=== PATIENT | male | born 1950 | race Caucasian/White ===

== ENCOUNTER → 2023-12-25 13:10 | Outpatient (REF) | payer MEDICARE, OTHER, SELFPAY | LOC: HWRAD 13:10 | PROVIDERS: ATTENDING PHYSICIAN Internal Medicine Rheumatology; FAMILY PHYSICIAN Family Medicine | DX: M81.0 Age-related osteoporosis without current pathological fracture (principal) | CPT/HCPCS: 77080 ==

== ENCOUNTER 2024-03-08 13:32 | Inpatient (IN) | payer MEDICARE, OTHER, SELFPAY ==
[2024-03-07 11:42] VITALS: BP 179/107
[2024-03-07 12:17] LABS: % Basophils 0.4 % (0-2); % Eosinophils 0.4 % (0-6); % Immature Granulocytes 0.4 % (0-0.5); % Lymphocytes 10.4 % (20.5-51.1); % Monocytes 6.8 % (1.7-9.3); % Neutrophils 81.6 % (42.2-75.2); Absolute Lymphocytes 0.8 10^3/uL (1.2-3.4); Absolute Monocytes 0.5 10^3/uL (0.1-0.6); Absolute Neutrophils 6.4 10^3/uL (1.4-6.5); Hematocrit 40.9 % (39.0-52.0); Hemoglobin 14.1 g/dL (13.0-18.0); Mean Corp Hgb Conc. 34.5 g/dL (33.0-37.0); Mean Corpuscular Hgb 30.8 pg (27.0-31.0); Mean Corpuscular Volume 89.3 fL (80.0-94.0); Mean Platelet Volume 9.6 fL (7.4-10.4); Nucleated Red Blood Cells % 0 % (-); Platelet Count 142 10^3/uL (130-400); Red Blood Cell Count 4.58 10^6/uL (4.70-6.10); Red Cell Dist. Width 14.6 % (11.5-14.5); White Blood Cell Count 7.8 10^3/uL (4.8-10.8)
[2024-03-07 12:44] LABS: ALT (SGPT) 16 U/L (0-50); AST (SGOT) 21 U/L (17-59); Alkaline Phosphatase 72 U/L (38-126); Blood Urea Nitrogen 14 mg/dl (9-20); Calcium 9.5 mg/dl (8.4-10.2); Carbon Dioxide 27 mmol/L (22-30); Chloride 106 mmol/L (98-107); Glucose 111 mg/dl (70-99); Potassium 3.8 mmol/L (3.5-5.1); Sodium 137 mmol/L (135-145); Total Bilirubin 1.1 mg/dl (0.2-1.3); Total Protein 6.4 g/dl (6.3-8.2); eGFR > 60.00
[2024-03-07 12:54] LABS: NT-proBNP 384 pg/ml
[2024-03-07 15:31] VITALS: BMI 36.8
[2024-03-07 15:37] VITALS: BP 158/98
[2024-03-07 16:07] LABS: Troponin I 0.012 ng/ml
--- NOTE | 2024-03-07 16:23 | ED.GENMED ---
History of Present Illness
General
Chief Complaint: Breathing Problem
Source: patient
Exam Limitations: none
Time Seen by Provider: 03/07/24 15:07
Nursing documentation reviewed up to this point in time: agreed with
Travel History
Have you had any contact with someone who has COVID-19?: No
Do you have any symptoms of coronavirus? Fever > 100 degrees, chills, cough, shortness of breath, sore throat, loss of taste or smell, muscle aches, or headache?: No
History of Present Illness
History of Present Illness:
Patient to ED with complaint of sudden onset severe SOB. States he lifted a case of water and becme SOB while carrying a short distance. He rested and symptoms resolved. Tried to carry water again and symptoms returned. Took approx 1 hour for
his SOB to resolve. [place] air hungry, unable to 'get air to lungs'. He has a prior history of PE approx 1o years ago after surgery. He was initally on coumadin and then switched to xarelto. Xarelto was disocontinued 1 year ago. He had carpal
tunnel surgery February 03 and was feeling well until today. Brought to ED by for eval. Pulse ox 95% RA resting. No pain or swelling in legs. Denies any CP/pressure
Past History
Past History
ED Past Medical History: GERD, Hypercholesterolemia, Hypothyroidism and Other (polymyalgia rheumatica)
Review of Systems
Review of Systems
Allergies reviewed?: Yes
All Other Systems: ROS reviewed and negative except as documented in HPI and ROS
Constitutional: Reports no symptoms
EENT: Reports no symptoms
Respiratory: Reports trouble breathing
Cardiac: Reports no symptoms
ABD/GI: Reports no symptoms
: Reports no symptoms
Musculoskeletal: Reports no symptoms
Skin: Reports no symptoms
Neurological: Reports no symptoms
Psychiatric: Reports no symptoms
Phy Exam
General Physical Exam
General Presentation: well appearing
General age: appears stated age
General Skin: warm and dry
General Habitus: normal
General Mental: alert
General Hydration: appears well hydrated
Cardiovascular Exam
Cardiovascular Exam: regular rate/rhythm and no edema
Pulmonary Exam
Pulmonary Exam: lungs clear, no respiratory distress and chest non tender
Musculoskeletal Exam
Musculoskeletal Exam: full ROM, no edema and neuro vasc intact
Skin Exam
Skin Exam: normal color, warm/dry and no rash
Psychiatric Exam
Psychiatric Exam: normal mood/affect
Scores
Heart Failure Risk
Heart Failure Risk Score: Not Applicable
Course
Orders/Labs/Results
Orders:
Orders
03/07/24 11:45
Electrocardiogram (*1) Urgent
Reason for Study: Shortness of Breath
EKG- Treatment ONCE
03/07/24 12:03
BNP [NT-proBNP] Urgent
Complete Blood Count/With Diff Urgent
Comprehensive Metabolic Panel Urgent
03/07/24 14:38
Chest [CR Chest - 2 Views ] Urgent
Comment:
Reason For Exam: SOB
03/07/24 15:27
CT Chest Pe Study Urgent
Comment:
Reason For Exam: SOB, hx PE
03/07/24 15:33
Troponin I Urgent
03/07/24 16:21
US Periph Venous LOWER Ext Prince Urgent
Comment:
Reason For Exam: Bilat PE
03/07/24 16:22
PTT Urgent
Heparin 9,800 units IV NOW STA
Nursing to Place Non Medication Order As Directed
Physician Order: PTT 6 hours after initial start of Heparin infusion
Above order entered?: Yes
03/07/24 16:30
Heparin 68320 Units/250 ml 25,000 units in 250 ml IV PER PROTOCOL
Weight to be used for heparin protocol in kilograms (kg):: 123.1
Protocol:: DVT/PE
PTT Goal Range to be used:: PTT 73 to 111 seconds
Order type:: Initial
INITIAL Infusion Dose (UNITS/KG/hr) & then follow protocol:: 18 units/kg/hr
Infusion Dose in UNITS/hr & then follow protocol (UNITS/hr):: 2,000
INFUSION RATE in mL/hr & then follow protocol (mL/hr):: 20
For DVT/PE algorithm, re-bolus for low PTT?: Yes
PTT less than or equal to 64 seconds:: Re-bolus 80 units/kg (max 10,000units). Increase by 500 units/hr
(+ 5mL/hr)
PTT 64.1 to 72.9 seconds:: Re-bolus 40 units/kg (max 5,000 units). Increase by 200 units/hr
(+ 2mL/hr)
PTT 73 to 111 seconds:: Target Range. No change in rate.
PTT 111.1 to 130.9 seconds:: Decrease rate by 200 units/hr (- 2 mL/hr)
PTT 131 to 199.9 seconds:: HOLD for 1 hr. Then decrease by 400 units/hr (- 4mL/hr)
PTT greater than or equal to 200 seconds:: HOLD for 2 hrs & Notify Provider. Then decrease by 500 units/hr
(- 5mL/hr)
Lab follow-up:: Each change, PTT q6h until 2 consecutive are therapeutic. Then
PTT daily.
03/07/24 16:58
Heparin 4,900 units IV PRN PRN
Heparin 9,800 units IV PRN PRN
03/07/24 17:10
Admit/Transfer Patient As Directed
Co-Sign Provider:
Level of Care: Observation services
Assign to:: Telemetry
Physician / Group: [email or web address]
Diagnosis: pulmonary embolism
Reason for Telemetry: Arrhythmia
Date to Stop Telemetry: 03/10/24
Time to Stop Telemetry: 11:00
Code Status As Directed
Resuscitation Status: Full Code
03/10/24 11:00
DC Protocol for Telemetry ONCE
Abnormal Lab Results
03/07/24
12:03
RBC 4.58 L 10^6/uL
(4.70-6.10)
RDW 14.6 H %
(11.5-14.5)
Absolute Lymphs (auto) 0.8 L 10^3/uL
(1.2-3.4)
Neutrophils % 81.6 H %
(42.2-75.2)
Lymphocytes % 10.4 L %
(20.5-51.1)
Glucose 111 H mg/dl
(70-99)
03/07/24 12:03
03/07/24 12:03
Vital Signs
Initial and Last Documented VS:
Initial Vital Signs
Temp Pulse Resp BP Pulse Ox
98.1 F 72 18 179/107 94
03/07/24 11:42 03/07/24 11:42 03/07/24 11:42 03/07/24 11:42 03/07/24 11:42
Last Documented Vital Signs
Temp Pulse Resp BP Pulse Ox
98.1 F 65 17 158/98 95
03/07/24 11:42 03/07/24 15:37 03/07/24 15:37 03/07/24 15:37 03/07/24 15:37
*Radiology
Radiology exam reviewed: radiology read reviewed (Sever acute Pulmonary embolic disease in lower lobes of both lungs. Mild right heart strain.)
*Critical Care Note
Total Time (30-74mins, 75-104mins- exclusive of procedures): Not Applicable
ED Attending Note
-
Portions of this chart may have been created with voice recognition software.� Occasional wrong word or��sound alike� substitutions may have occurred due to the inherent limitations of voice recognition software.
Discharge Plan
Departure
Patient Disposition: Admit
Date of Disposition: 03/07/24
Time of Disposition: 16:34
Presentation/result/management discussed w/ accepting MD/DO: Hospitalist
Patient with high blood pressure during this ER visit?: No
Condition: Fair
Covid-19: Not Applicable
Discharge Problem:
Pulmonary embolism, bilateral
Prescriptions:
No Action
prednisone 5 mg Tablet
5 mg PO DAILY
Patient Comments:
03/07/2024: taken w/ 3mg = 8mg
omeprazole [Prilosec] 40 mg Capsule,Delayed Release(Dr/Ec)
40 mg PO DAILY
prednisone 1 mg Tablet
3 mg PO DAILY
Patient Comments:
03/07/2024: taken w/ 5mg = 8mg
levothyroxine [Synthroid] 125 mcg Tablet
125 mcg PO DAILY
calcium citrate [Citracal] 200 mg (950 mg) Tablet
400 mg PO DAILY
rosuvastatin 40 mg Tablet
40 mg PO DAILY
cholecalciferol (vitamin D3) [Vitamin D3] 50 mcg (2,000 unit) Tablet
50 mcg PO DAILY
[facility] 750 mg-100 mg- 1.65 mg-108 mg Tablet
2 tab PO DAILY
Interventions
Interventions:
*Risk Screen - Suicide Last Done: 03/07/24 11:42
*General Assessment Last Done: 03/07/24 11:42
*Neglect/Abuse Screening Last Done: 03/07/24 11:42
*ED COVID-19 Vaccine History Last Done: 03/07/24 11:42
ED- Cardiac Assessment Last Done: 03/07/24 15:36
ED- Pulmonary Assessment Last Done: 03/07/24 15:36
Discharge Date and Time
Print Language: MACEDONIAN
[2024-03-07 16:49] LABS: APTT 26.6 Sec (23.4-35.0)
[2024-03-07] MEDS: HEPARIN 25000 UNITS/250 ML IV (17:09)
[2024-03-07] MEDS: HEPARIN 9800 UNITS IV (17:10)
--- NOTE | 2024-03-07 17:12 | HPS.HSE ---
Family Physician
-
Family Physician: Butch Urena
Chief Complaint
-
shortness of breath
History of Present Illness
73-year-old male past medical history of prior pulmonary embolism/DVT 10 years ago, hypothyroidism, GERD, hypercholesterolemia, polymyalgia rheumatica, presenting with sudden onset of severe shortness of breath today. He was lifting a case of water
and became short of breath while carrying it a short distance. He rested and symptoms almost completely resolved. He tried to carry water again his symptoms returned. He denies any chest pain, swelling in his legs. He did have some dizziness but
denies passing out. He had carpal tunnel surgery on his left upper extremity on February 03. He denies any recent prolonged travel. He denies any recent COVID infection.
He previously had pulmonary embolism 10 years ago after surgery and was initially on Coumadin and then switched to Xarelto. Xarelto was discontinued 1 year ago. He had genetic testing for hypercoagulability which was unremarkable. No family
history of blood clots.
He had carpal tunnel surgery on February 03 and was feeling well until today.
Medical History
Past Medical History
Past Medical History: Reports Other (prior pulmonary embolism/DVT 10 years ago, hypothyroidism, GERD, hypercholesterolemia, polymyalgia rheumatica,)
Past Surgical History: Reports Orthopedic
Social History
Tobacco: Former Smoker
Alcohol: None
Drug: None
Family History
Family History: Not pertinent
Allergies / Home Medications
Allergies reflects when Allergies were last updated in [facility].
Home Medications with original date entered in [facility]
Allergy/Medication List:
Allergies
Allergy/AdvReac Type Severity Reaction Status Date / Time
No Known Allergies Allergy Unverified 03/07/24 11:44
Home Medications
calcium citrate 200 mg (950 mg) tablet 400 mg PO DAILY 03/07/24
cholecalciferol (vitamin D3) 50 mcg (2,000 unit) tablet (Vitamin D3) 50 mcg PO DAILY 03/07/24
glucosam 750 mg-chondroi 100 mg-hyalur 1.65 mg-CF borate 108 mg tablet (Healionics) 2 tab PO DAILY 03/07/24
levothyroxine 125 mcg tablet (Synthroid) 125 mcg PO DAILY 03/07/24
omeprazole 40 mg capsule,delayed release 40 mg PO DAILY 03/07/24
prednisone 1 mg tablet 3 mg PO DAILY 03/07/24
prednisone 5 mg tablet 5 mg PO DAILY 03/07/24
rosuvastatin 40 mg tablet 40 mg PO DAILY 03/07/24
Review of Systems
-
History Source: Patient
A 12 point ROS was completed and negative except as noted: Yes
Constitutional: Reports No Symptoms
EENT: Reports No Symptoms
Respiratory: Reports See HPI
Cardiac: Reports No Symptoms
Abdomen/GI: Reports No Symptoms
: Reports No Symptoms
Musculoskeletal: Reports No Symptoms
Skin: Reports No Symptoms
Neurological: Reports No Symptoms
Endocrine: Reports No Symptoms
Hematologic/Lymphatic: Reports No Symptoms
Psych: Reports No Symptoms
Physical Exam
Vital Signs
Vital Signs
Temp Pulse Resp BP Pulse Ox
98.1 F 65 17 158/98 95
03/07/24 11:42 03/07/24 15:37 03/07/24 15:37 03/07/24 15:37 03/07/24 15:37
Physical Exam
General: Well Developed, Well Nourished and No Apparent Distress
HEENT: NormoCephalic, Moist mucous membranes and Atraumatic
Respiratory: Clear
Cardiac: S1/S2 and Regular Rhythm; No Murmur or Rub
GI: Soft, Non Tender, Non Distended and Normal Bowel Sounds; No Organomegaly
Rectal: Deferred by Provider
Musculoskeletal: No Clubbing, No Cyanosis and No Edema
Skin: No Rash
Neuro: Nonfocal/grossly intact
Laboratory Results
-
03/07/24 12:03
03/07/24 12:03
Laboratory Results
APTT 26.6 Sec (23.4-35.0) 03/07/24 16:22
Total Bilirubin 1.1 mg/dl (0.2-1.3) 03/07/24 12:03
AST 21 U/L (17-59) 03/07/24 12:03
ALT 16 U/L (0-50) 03/07/24 12:03
Alkaline Phosphatase 72 U/L (38-126) 03/07/24 12:03
Troponin I 0.012 ng/ml 03/07/24 15:33
Data Reviewed
-
Lab Data: Labs Reviewed by me
Old Records: Reviewed
Impression/Plan
-
IMPRESSION:
PLAN:
# Provoked pulmonary embolism from carpal tunnel surgery
# History of possibly unprovoked pulmonary embolism 10 years ago
-CT chest shows severe acute pulmonary embolism in lower lobes of both lungs, moderate pulmonary embolic disease in the right upper and middle lobes with right heart strain
-Heparin drip
-Likely needs Xarelto lifelong
-Check venous ultrasound
-Check echo
-Pulmonary consulted
Hypothyroidism
-Continue levothyroxine
GERD
-Continue omeprazole
Polymyalgia rheumatica
-Continue prednisone
Hypercholesteremia
-Continue statin
Full code
DVT prophylaxis�heparin drip
Regular diet
[2024-03-07 18:29] VITALS: BP 179/108; BMI 35.8
[2024-03-07 19:31] VITALS: BP 165/96
[2024-03-07 23:55] VITALS: BP 154/94
[2024-03-07 23:58] LABS: APTT > 200 Sec (23.4-35.0)
[2024-03-08 03:47] VITALS: BP 147/90
[2024-03-08] MEDS: SYNTHROID 125 MCG PO (05:42)
[2024-03-08 07:55] VITALS: BP 142/92
[2024-03-08 08:09] LABS: % Basophils 0.8 % (0-2); % Eosinophils 3.2 % (0-6); % Immature Granulocytes 0.3 % (0-0.5); % Lymphocytes 31.3 % (20.5-51.1); % Monocytes 10.1 % (1.7-9.3); % Neutrophils 54.3 % (42.2-75.2); Absolute Basophils 0.1 10^3/uL (0-0.2); Absolute Eosinophils 0.2 10^3/uL (0-0.7); Absolute Lymphocytes 2.1 10^3/uL (1.2-3.4); Absolute Monocytes 0.7 10^3/uL (0.1-0.6); Absolute Neutrophils 3.6 10^3/uL (1.4-6.5); Hematocrit 41.3 % (39.0-52.0); Hemoglobin 13.8 g/dL (13.0-18.0); Mean Corp Hgb Conc. 33.4 g/dL (33.0-37.0); Mean Corpuscular Hgb 30.3 pg (27.0-31.0); Mean Corpuscular Volume 90.8 fL (80.0-94.0); Mean Platelet Volume 10.1 fL (7.4-10.4); Nucleated Red Blood Cells % 0 % (-); Platelet Count 130 10^3/uL (130-400); Red Blood Cell Count 4.55 10^6/uL (4.70-6.10); Red Cell Dist. Width 14.6 % (11.5-14.5); White Blood Cell Count 6.6 10^3/uL (4.8-10.8)
[2024-03-08 08:18] LABS: APTT 78.2 Sec (23.4-35.0)
[2024-03-08 08:50] LABS: ALT (SGPT) 17 U/L (0-50); AST (SGOT) 24 U/L (17-59); Albumin 3.7 g/dl (3.5-5.0); Alkaline Phosphatase 68 U/L (38-126); Blood Urea Nitrogen 14 mg/dl (9-20); Carbon Dioxide 28 mmol/L (22-30); Chloride 105 mmol/L (98-107); Estimated Creatinine Clearance 107 ml/min; Glucose 86 mg/dl (70-99); Potassium 3.7 mmol/L (3.5-5.1); Sodium 136 mmol/L (135-145); Total Bilirubin 1.1 mg/dl (0.2-1.3); Total Protein 6.1 g/dl (6.3-8.2); eGFR > 60.00
[2024-03-08] MEDS: OSCAL CAL 500 500 MG PO (09:37)
[2024-03-08] MEDS: DELTASONE 3 MG PO (09:37)
[2024-03-08] MEDS: PROTONIX 40 MG PO (09:37)
[2024-03-08] MEDS: VITAMIN D3 (cholecalciferol) 50 MCG PO (09:37)
[2024-03-08] MEDS: CRESTOR 40 MG PO (09:37)
[2024-03-08] MEDS: DELTASONE 5 MG PO (09:37)
[2024-03-08] MEDS: HEPARIN 25000 UNITS/250 ML IV (09:38)
[2024-03-08 10:35] LABS: Hepatitis C Antibody Negative (Negative)
[2024-03-08 11:55] VITALS: BP 119/77
--- NOTE | 2024-03-08 12:22 | CON.PUL ---
Consultation
Consultation Request
Date/Time Consultation Requested: 03/08/2024
Date/Time Consultation Performed: 03/08/2024
Requesting Provider: Dr. Dao
Performing Provider: Dr. Steven Godinez
Reason for Consultation: Acute pulmonary embolism/DVT
Medical History
-
History of Present Illness:
73-year-old man with past medical history noted, complaint of sudden onset severe SOB. States he lifted a case of water and becme SOB while carrying a short distance. He rested and symptoms resolved. Tried to carry water again and symptoms
returned. Took approx 1 hour for his SOB to resolve. [place] air hungry, unable to 'get air to lungs'.
He has a prior history of PE approx 1o years ago after surgery.
He was initally on coumadin and then switched to xarelto. Xarelto was disocontinued 1 year ago. He had carpal tunnel surgery February 03 and was feeling well until today.
CT of the chest demonstrated bilateral pulmonary embolism. Patient remained hemodynamically stable.
No require significant amount of oxygen. Started on anticoagulation.
Past Medical History
Past Medical History: Other (See assessment and plan section)
Social History
Tobacco: Former Smoker
Alcohol: None
Drug: None
Employment: Retired
Family History
Family History: Reviewed & Not Pertinent
Allergies / Home Medications
Allergies
Allergy/AdvReac Type Severity Reaction Status Date / Time
No Known Allergies Allergy Unverified 03/07/24 11:44
Home Medications
�Medication �Instructions �Recorded �Confirmed �Last Taken �Type
calcium citrate 200 mg (950 mg) 400 mg PO DAILY 03/07/24 03/07/24 03/06/24 History
tablet
cholecalciferol (vitamin D3) 50 50 mcg PO DAILY 03/07/24 03/07/24 03/06/24 History
mcg (2,000 unit) tablet (Vitamin
D3)
glucosam 750 mg-chondroi 100 2 tab PO DAILY 03/07/24 03/07/24 03/06/24 History
mg-hyalur 1.65 mg-CF borate 108 mg
tablet ([facility] Free [employer])
levothyroxine 125 mcg tablet 125 mcg PO DAILY 03/07/24 03/07/24 03/06/24 History
(Synthroid)
omeprazole 40 mg capsule,delayed 40 mg PO DAILY 03/07/24 03/07/24 03/06/24 History
release
prednisone 1 mg tablet 3 mg PO DAILY 03/07/24 03/07/24 03/07/24 History
prednisone 5 mg tablet 5 mg PO DAILY 03/07/24 03/07/24 03/07/24 History
rosuvastatin 40 mg tablet 40 mg PO DAILY 03/07/24 03/07/24 03/06/24 History
Review of Systems
-
History Source: Patient
All other systems: Negative unless noted
Vitals / Labs / Diagnostic Testing
Vital Signs
Temp Pulse Resp BP Pulse Ox
97.9 F 64 18 142/92 95
03/08/24 07:55 03/08/24 07:55 03/08/24 07:55 03/08/24 07:55 03/08/24 10:53
Lab Data
03/08/24 07:49
03/08/24 07:49
Laboratory Results
03/07/24 03/07/24 03/08/24
16:22 23:17 01:00
APTT 26.6 > 200 H* Cancelled
03/08/24
07:49
APTT 78.2 H
Diagnostic Testing:
Physical Exam
-
HEENT: Normocephalic
Cardiovascular: S1/S2
Respiratory: Clear and Non-Labored Respirations
GI: Soft and Non Distended
Neurology: Awake and Alert
General: Respiratory Distress (n)
Assessment
-
Acute bilateral pulmonary embolism unprovoked
Normal proBNP and troponin
CT chest reviewed 03/07/2024:
1. SEVERE ACUTE PULMONARY ARTERIAL EMBOLIC DISEASE in in the lower lobes of both lungs. Moderate pulmonary arterial embolic disease in the right upper and middle lobes.
2. Suggestion of MILD RIGHT HEART STRAIN.
3. Mildly decreased lung volumes with a mild amount of subsegmental atelectasis in the dependent portions of the lower lobes.
4. 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
Acute Left lower extremity DVT
Lower extremity Dopplers: Positive for thromboembolus in the left femoral, popliteal, peroneal, and gastrocnemius veins.
Conditions present prior admission:
Severe obstructive sleep apnea based on home sleep study-currently not on CPAP.
Recent carpal tunnel surgery 01/2024
Hypothyroidism
GERD
prior pulmonary embolism/DVT 10 years ago
hypothyroidism
hypercholesterolemia
polymyalgia rheumatica on low dose steroids.
Assessment and plan:
Unprovoked pulmonary embolism with significant DVT as well. Doubt carpal tunnel surgery was a provoking event.
It appears that event 10 years ago was unprovoked.
Hemodynamically stable, not significantly tachycardic.
Negative proBNP and troponin.
Hemodynamically stable.
Echocardiogram has been ordered. Will follow.
-
Continue heparin or Lovenox for the next 24 hours and then transition to oral anticoagulants.
Patient will need outpatient pulmonary follow-up.
Likely given second unprovoked event, will need lifelong anticoagulation. Will be ongoing discussion in the outpatient setting.
-
Discussed with patient obstructive sleep apnea. Recommend outpatient follow-up to set up CPAP. Patient states that he does not want to try CPAP.
Will be ongoing discussion in the outpatient setting.
-
Will follow
Hopefully can discharge tomorrow.
Discussed with primary team
--- NOTE | 2024-03-08 13:29 | W.PN.HOSP.TC ---
Today's Communication/Plan
-
see outlined plan
Assessment / Plan
Assessment / Plan
Assessment:
Unproved VTE
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
- CT: SEVERE ACUTE PULMONARY ARTERIAL EMBOLIC DISEASE in in the lower lobes of both lungs. Moderate pulmonary arterial embolic disease in the right upper and middle lobes. Suggestion of MILD RIGHT HEART STRAIN.
- Dopplers: thromboembolus in the left femoral, popliteal, peroneal, and gastrocnemius veins
- continue IV Heparin x 24 hours further - requires intensive monitoring
- at discharge, transition back to Xarelto (planned for lifelong treatment)
- check Echo
Hypothyroidism
- continue levothyroxine
GERD
- continue omeprazole
Polymyalgia rheumatica
- continue prednisone
Hypercholesteremia
- continue statin
Severe obstructive sleep apnea based on home sleep study-currently not on CPAP.
- outpatient follow up
Recent carpal tunnel surgery 01/2024
Code: Full
Anticipated Discharge: Within 24 hours
Subjective/Interval History
-
Date of Service: March 08, 2024
mildly SOB
on RA
Objective Data
-
Labs:
Laboratory Results
03/08/24 03/08/24
07:49 15:00
WBC 6.6
Hgb 13.8
Hct 41.3
Plt Count 130
APTT 78.2 H Pending
Sodium 136
Potassium 3.7
Chloride 105
Carbon Dioxide 28
BUN 14
Creatinine 0.8
Glucose 86
Calcium 9.0
Total Bilirubin 1.1
AST 24
ALT 17
Alkaline Phosphatase 68
Vital Signs:
Vital Signs
Temp Pulse Resp BP Pulse Ox
97.7 F 73 18 119/77 97
03/08/24 11:55 03/08/24 11:55 03/08/24 11:55 03/08/24 11:55 03/08/24 11:55
I&O
03/07/24 03/08/24 03/09/24
06:59 06:59 06:59
Intake Total 240 / 240
Balance 240 / 240
Physical Exam
-
General: No Apparent Distress
HEENT: Normocephalic and Atraumatic
Respiratory: Clear to Auscultation; Negative Wheezes or Rales
Cardiac: Regular Rhythm and S1/S2
GI: Soft and Nontender
Neuro: AO x 3
Hematologic / Lymphatic: No Lymphadenopathy
Psych: Calm
Data Reviewed
-
Total Time Spent with Patient (in minutes): 52
Labs: Labs Reviewed by me
[2024-03-08 15:32] LABS: APTT 72.2 Sec (23.4-35.0)
[2024-03-08] MEDS: HEPARIN 4900 UNITS IV (15:50)
[2024-03-08 15:55] VITALS: BP 142/81
--- NOTE | 2024-03-08 16:14 | CM ---
Alert awake oriented patient who lives with his Hoa who lives in a 2 story home with 3 step to enter and bed and bathroom on first floor. He is independent in driving and in all activities of daily living.He was offered Vn he declined need.
IV infusion VN hx / No SNF history
Pharmacy [facility]
PCP DR Butch Urena
PLAN Home Declined VN
[2024-03-08 19:55] VITALS: BP 131/95
[2024-03-08 22:25] LABS: APTT 151.1 Sec (23.4-35.0)
[2024-03-08 23:58] VITALS: BP 141/88
[2024-03-09 03:45] VITALS: BP 151/98
[2024-03-09] MEDS: HEPARIN 25000 UNITS/250 ML IV ×2 (03:49→18:28)
[2024-03-09 05:41] LABS: Hematocrit 39.8 % (39.0-52.0); Hemoglobin 13.5 g/dL (13.0-18.0); Mean Corp Hgb Conc. 33.9 g/dL (33.0-37.0); Mean Corpuscular Hgb 30.8 pg (27.0-31.0); Mean Corpuscular Volume 90.7 fL (80.0-94.0); Mean Platelet Volume 9.7 fL (7.4-10.4); Platelet Count 145 10^3/uL (130-400); Red Blood Cell Count 4.39 10^6/uL (4.70-6.10); Red Cell Dist. Width 14.6 % (11.5-14.5); White Blood Cell Count 8.6 10^3/uL (4.8-10.8)
[2024-03-09 05:49] LABS: APTT 74.2 Sec (23.4-35.0)
[2024-03-09] MEDS: SYNTHROID 125 MCG PO (06:11)
[2024-03-09 06:25] LABS: Blood Urea Nitrogen 19 mg/dl (9-20); Calcium 9.1 mg/dl (8.4-10.2); Carbon Dioxide 30 mmol/L (22-30); Chloride 104 mmol/L (98-107); Estimated Creatinine Clearance 85 ml/min; Glucose 88 mg/dl (70-99); Potassium 3.7 mmol/L (3.5-5.1); Sodium 137 mmol/L (135-145); eGFR > 60.00
[2024-03-09] MEDS: DELTASONE 3 MG PO (07:52)
[2024-03-09] MEDS: PROTONIX 40 MG PO (07:53)
[2024-03-09] MEDS: VITAMIN D3 (cholecalciferol) 50 MCG PO (07:53)
[2024-03-09] MEDS: OSCAL CAL 500 500 MG PO (07:53)
[2024-03-09] MEDS: CRESTOR 40 MG PO (07:53)
[2024-03-09] MEDS: DELTASONE 5 MG PO (07:53)
[2024-03-09 07:55] VITALS: BP 137/74
--- NOTE | 2024-03-09 10:57 | W.PN.PUL3 ---
Today's Communication / Plan
-
Keep 1 more day of systemic anticoagulation given RV dysfunction
Transition to oral anticoagulants tomorrow
Increase activity as tolerated
Hypoxia assessment in the morning
Hopefully can discharge tomorrow if patient stable.
Will need pulmonary follow-up
updated over the phone by me.
Assessment
-
Acute bilateral pulmonary embolism unprovoked
Normal proBNP and troponin
CT chest reviewed 03/07/2024:
1. SEVERE ACUTE PULMONARY ARTERIAL EMBOLIC DISEASE in in the lower lobes of both lungs. Moderate pulmonary arterial embolic disease in the right upper and middle lobes.
2. Suggestion of MILD RIGHT HEART STRAIN.
3. Mildly decreased lung volumes with a mild amount of subsegmental atelectasis in the dependent portions of the lower lobes.
4. 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
Acute Left lower extremity DVT
Lower extremity Dopplers: Positive for thromboembolus in the left femoral, popliteal, peroneal, and gastrocnemius veins.
Conditions present prior admission:
Severe obstructive sleep apnea based on home sleep study-currently not on CPAP.
Recent carpal tunnel surgery 01/2024
Hypothyroidism
GERD
prior pulmonary embolism/DVT 10 years ago
hypothyroidism
hypercholesterolemia
polymyalgia rheumatica on low dose steroids.
Assessment and plan:
Unprovoked pulmonary embolism with significant DVT as well. Doubt carpal tunnel surgery was a provoking event.
It appears that event 10 years ago was unprovoked.
Hemodynamically stable, not significantly tachycardic.
Normal proBNP and troponin.
Hemodynamically stable.
Echocardiogram:: Reviewed, showed normal LVEF. Dilated RV. Pulmonary hypertension.
-
Has remained on therapeutic heparin drip.
Transition to oral anticoagulation
Would monitor ordered for additional 24 hours given findings on echocardiogram. High risk for complications.
Hopefully discharge on 03/10/2024 if remains stable.
Patient will need outpatient pulmonary follow-up.
Likely given second unprovoked event, will need lifelong anticoagulation. Will be ongoing discussion in the outpatient setting.
-
Discussed with patient obstructive sleep apnea. Recommend outpatient follow-up to set up CPAP. Patient states that he does not want to try CPAP.
Untreated obstructive sleep apnea may be also contributing to RV dysfunction and pulmonary hypertension.
Will be ongoing discussion in the outpatient setting.
-
Patient would like to go to [place] on Thursday driving. Not an absolute contraindication but he was told that there is risk of additional clot dislodgment with subsequent acute event. He will discuss with whether to delay the trip for a
few more days.
-
Will follow
Hopefully can discharge tomorrow.
Discussed with primary team
Subjective Data
-
Date of Service:
Date of Service: March 09, 2024
Chief Complaint: Pulmonary Follow Up (Acute pulmonary embolism)
Subjective:
No new complaints, denies lightheadedness or chest pain.
Denies nausea or vomiting
Review of Systems
General: Fever (n)
Cardiopulmonary: Dyspnea (improved) and Sputum Production (n)
GI: Abdominal Pain (n), Nausea (n) and Vomiting (n)
Neuro: Headache (n)
Objective Data
Data Reviewed
Vital Signs / I&O / Oxygen:
Vital Signs
Temp Pulse Resp BP Pulse Ox
97.5 F 63 18 137/74 94
03/09/24 07:55 03/09/24 07:55 03/09/24 07:55 03/09/24 07:55 03/09/24 07:55
Intake and Output
03/08/24 03/09/24 03/10/24
06:59 06:59 06:59
Intake Total 240 / 240 1140 / 1140
Balance 240 / 240 1140 / 1140
SaO2 94
Physical Exam
General: Respiratory Distress (n) and Comfortable
HEENT: Normocephalic
Cardiovascular: S1-S2 and Regular Rhythm
Respiratory: Clear and Non-Labored Respirations
GI: Soft and Distended (obese)
Neurology: Awake and Alert
Labs/Micro/Reports
Lab Data
03/09/24 05:28
03/09/24 05:28
Laboratory Results
03/08/24 03/08/24 03/09/24
15:13 22:02 05:28
APTT 72.2 H 151.1 H* 74.2 H
--- NOTE | 2024-03-09 11:14 | W.PN.HOSP.TC ---
Today's Communication/Plan
-
continue IV heparin
transition to oral AC tomorrow morning
PT in morning with home O2 eval with prolonged ambulation to assess symptoms and HR
Assessment / Plan
Assessment / Plan
Assessment:
Unproved VTE
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
- CT: SEVERE ACUTE PULMONARY ARTERIAL EMBOLIC DISEASE in in the lower lobes of both lungs. Moderate pulmonary arterial embolic disease in the right upper and middle lobes. Suggestion of MILD RIGHT HEART STRAIN.
- Dopplers: thromboembolus in the left femoral, popliteal, peroneal, and gastrocnemius veins
- continue IV Heparin x 24 hours further - requires intensive monitoring
- at discharge, transition back to Xarelto (planned for lifelong treatment) - script sent to [facility]
- Echo: showed normal LVEF. Dilated RV. Pulmonary hypertension.
Hypothyroidism
- continue levothyroxine
GERD
- continue omeprazole
Polymyalgia rheumatica
- continue prednisone
Hypercholesteremia
- continue statin
Severe obstructive sleep apnea based on home sleep study-currently not on CPAP.
- outpatient follow up
Recent carpal tunnel surgery 01/2024
Code: Full
Anticipated Discharge: Within 24 hours
Subjective/Interval History
-
Date of Service: March 09, 2024
no new complaints at present
on IV heparin
Objective Data
-
Labs:
Laboratory Results
03/09/24 03/09/24
05:28 12:00
WBC 8.6
Hgb 13.5
Hct 39.8
Plt Count 145
APTT 74.2 H Pending
Sodium 137
Potassium 3.7
Chloride 104
Carbon Dioxide 30
BUN 19
Creatinine 1.0
Glucose 88
Calcium 9.1
Vital Signs:
Vital Signs
Temp Pulse Resp BP Pulse Ox
97.5 F 63 18 137/74 94
03/09/24 07:55 03/09/24 07:55 03/09/24 07:55 03/09/24 07:55 03/09/24 07:55
I&O
03/08/24 03/09/24 03/10/24
06:59 06:59 06:59
Intake Total 240 / 240 1140 / 1140
Balance 240 / 240 1140 / 1140
Physical Exam
-
General: No Apparent Distress
HEENT: Normocephalic and Atraumatic
Respiratory: Negative Wheezes or Rales
Cardiac: Regular Rhythm and S1/S2
GI: Soft
Musculoskeletal: No Edema
Neuro: AO x 3
Psych: Calm
Data Reviewed
-
Total Time Spent with Patient (in minutes): 51
Labs: Labs Reviewed by me
--- NOTE | 2024-03-09 11:18 | CM ---
Addendum entered by Morelia Roy 03/09/24 14:10:
Met with patient at bedside to discuss discharge plan
Explained home health services for visiting nurse post discharge; patient agreeable; home health referral sent to [facility] liaison via [employer]
IMM benefit explained; form signed @ [id number]
Xarelto coupon for 30 day free trial provided per Attending's request
Plan: discharge to home tomorrow with home health [facility]
Addendum entered by Morelia Roy 03/09/24 11:37:
Xarelto starter pack cost for patient is $150.00
Attending notified
Original Note:
Case Management Consult completed. Was unable to get Xarelto pricing from [employer] via [employer] system. [employer] will provide pricing once prescription is sent. [employer] to Attending acknowledged. Will give a coupon to patient as requested
Spoke with patient's via phone this morning to discuss discharge plan and recommended home health services for [facility]
asked to speak with Attending; she is concerned that declined initial offer for [facility] and his plan to drive to [place].
Attending contacted and provided 's phone number via [employer]
Plan: Discharge to home when medically stable; will offer home health [facility] again
[2024-03-09 11:55] VITALS: BP 146/90
[2024-03-09 12:39] LABS: APTT 57.9 Sec (23.4-35.0)
[2024-03-09] MEDS: HEPARIN 9800 UNITS IV (12:46)
[2024-03-09 15:55] VITALS: BP 137/75
--- NOTE | 2024-03-09 16:02 | VNURNOTE ---
Home Health Liaison met with patient and spouse Hoa at 1530 to discuss [facility] nurse/therapy, visits, schedule and homebound status. Patient is agreeable and understands that visits at home will be 2-3 x per week to assess and teach medical
management.
Patient stated that he does not intend to be homebound more than 1-2 days.
[facility] brochure provided with contact information.
Patient is aware that [facility] will contact them for start of care in 1-2 days after discharge from if he agrees at time of discharge.
[facility] referral to be completed in [facility] Port closer to discharge and with patient agreement.
--- NOTE | 2024-03-09 17:37 | PTCARENOTE ---
Pt ambulated in hallway with . Spot checked with each lap, 3 laps total pulse ox 91-94% on RA HR 90s-110s with some dyspnea noted. Pt ambulated back to room to rest, call gunter within reach, plan of care ongoing.
[2024-03-09 19:23] LABS: APTT 177.4 Sec (23.4-35.0)
[2024-03-09 19:30] VITALS: BP 150/87
[2024-03-09 23:47] VITALS: BP 141/82
[2024-03-10 03:04] LABS: APTT 95.1 Sec (23.4-35.0)
[2024-03-10 03:15] VITALS: BP 141/88
[2024-03-10] MEDS: SYNTHROID 125 MCG PO (04:57)
--- NOTE | 2024-03-10 07:23 | PN.CDI ---
CDI
- -
CDI:
Physician Documentation Request
Admit Date: 03/08/24 13:32
Dear Doctor Sylwia,
Please review the following and provide your response in the progress notes.
Clinical Indicators:
PN, 03/09
#- CT: SEVERE ACUTE PULMONARY ARTERIAL EMBOLIC DISEASE
#...in in the lower lobes of both lungs.
#Suggestion of MILD RIGHT HEART STRAIN.
#- Echo: showed normal LVEF. Dilated RV. Pulmonary hypertension.
Pulmonary PN, 03/09
#Keep 1 more day of systemic anticoagulation given RV dysfunction
Please clarify which of the following accurately represents the etiology of the Right Heart Strain....:
Acute pulmonary artery embolus with acute cor pulmonale
Acute pulmonary artery embolus without acute cor pulmonale
Other(please specify)
Use of terms such as suspected, likely, concern for, or probable (associated with a specific diagnosis that is being evaluated, monitored, or treated as if it exists) are acceptable and can be coded in the inpatient setting, when documented at the
time of discharge.
Thank you,
Ilene Gupta RN BSN CCDS
CDI Specialist
please contact via tiger text
Please use your independent medical judgment in providing your response.
[2024-03-10 07:30] VITALS: BP 127/72
[2024-03-10 08:39] LABS: APTT 82.5 Sec (23.4-35.0)
[2024-03-10] MEDS: DELTASONE 3 MG PO (09:34)
[2024-03-10] MEDS: CRESTOR 40 MG PO (09:34)
[2024-03-10] MEDS: DELTASONE 5 MG PO (09:35)
[2024-03-10] MEDS: PROTONIX 40 MG PO (09:35)
[2024-03-10] MEDS: OSCAL CAL 500 500 MG PO (09:35)
[2024-03-10] MEDS: VITAMIN D3 (cholecalciferol) 50 MCG PO (09:35)
[2024-03-10 10:16] VITALS: O2SAT 93; O2SAT 94
[2024-03-10 11:07] VITALS: BP 148/89
--- NOTE | 2024-03-10 13:40 | W.PN.PUL3 ---
Today's Communication / Plan
-
Transition to oral anticoagulation
Outpatient pulmonary follow-up
Discussed with patient restrictions for the next 4 to 6 weeks. No heavy lifting, no strenuous exercising.
Assessment
-
Acute bilateral pulmonary embolism unprovoked
Normal proBNP and troponin
CT chest reviewed 03/07/2024:
1. SEVERE ACUTE PULMONARY ARTERIAL EMBOLIC DISEASE in in the lower lobes of both lungs. Moderate pulmonary arterial embolic disease in the right upper and middle lobes.
2. Suggestion of MILD RIGHT HEART STRAIN.
3. Mildly decreased lung volumes with a mild amount of subsegmental atelectasis in the dependent portions of the lower lobes.
4. 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
Acute Left lower extremity DVT
Lower extremity Dopplers: Positive for thromboembolus in the left femoral, popliteal, peroneal, and gastrocnemius veins.
Conditions present prior admission:
Severe obstructive sleep apnea based on home sleep study-currently not on CPAP.
Recent carpal tunnel surgery 01/2024
Hypothyroidism
GERD
prior pulmonary embolism/DVT 10 years ago
hypothyroidism
hypercholesterolemia
polymyalgia rheumatica on low dose steroids.
Assessment and plan:
Unprovoked pulmonary embolism with significant DVT as well. Doubt carpal tunnel surgery was a provoking event.
It appears that event 10 years ago was unprovoked.
Hemodynamically stable, not significantly tachycardic.
Normal proBNP and troponin.
Hemodynamically stable.
Echocardiogram:: Reviewed, showed normal LVEF. Dilated RV. Pulmonary hypertension.
-
Okay to transition to oral anticoagulation
Patient was able to ambulate without shortness of breath. No oxygen requirements.
Okay for discharge from my perspective.
Patient will need outpatient pulmonary follow-up.
Likely given second unprovoked event, will need lifelong anticoagulation. Will be ongoing discussion in the outpatient setting.
-
Discussed with patient obstructive sleep apnea. Recommend outpatient follow-up to set up CPAP. Patient states that he does not want to try CPAP.
Untreated obstructive sleep apnea may be also contributing to RV dysfunction and pulmonary hypertension.
Will be ongoing discussion in the outpatient setting.
-
Patient would like to go to [place] on Thursday driving. Not an absolute contraindication but he was told that there is risk of additional clot dislodgment with subsequent acute event. He will discuss with whether to delay the trip for a
few more days.
-
Discussed with primary team.
Okay for discharge
Sign off
Outpatient pulmonary follow-up.
Subjective Data
-
Date of Service:
Date of Service: March 10, 2024
Chief Complaint: Pulmonary Follow Up (Acute pulmonary embolism)
Subjective:
No new complaints
Stable hemodynamically overnight.
Review of Systems
General: Fever (n)
Cardiopulmonary: Dyspnea (n)
GI: Abdominal Pain (n), Nausea (n) and Vomiting (n)
Neuro: Dizziness (n)
Objective Data
Data Reviewed
Vital Signs / I&O / Oxygen:
Vital Signs
Temp Pulse Resp BP Pulse Ox
97.8 F 68 17 148/89 96
03/10/24 11:07 03/10/24 11:07 03/10/24 11:07 03/10/24 11:07 03/10/24 11:07
Intake and Output
03/09/24 03/10/24 03/11/24
06:59 06:59 06:59
Intake Total 1140 / 1140 1193 / 1193
Balance 1140 / 1140 1193 / 1193
SaO2 96
Physical Exam
General: Respiratory Distress (n) and Comfortable
HEENT: Normocephalic
Cardiovascular: S1-S2 and Regular Rhythm
Respiratory: Clear and Non-Labored Respirations
GI: Soft and Distended (obese)
Neurology: Awake and Alert
Labs/Micro/Reports
Lab Data
03/09/24 05:28
03/09/24 05:28
Laboratory Results
03/09/24 03/10/24 03/10/24
18:52 02:46 08:18
APTT 177.4 H* 95.1 H 82.5 H
--- NOTE | 2024-03-10 14:28 | CM ---
Addendum entered by Morelia Roy 03/10/24 14:37:
Plan: discharge to home today with home health services if patient agrees
Per the [facility] liaison, she met with the patient and his yesterday @ 1530 to discuss home health services; and she plans to call patient again to discuss.
Per her note, 'Patient stated that he does not intend to be homebound more than 1-2 days. [facility] brochure provided with contact information'
Original Note:
Plan: discharge to home today with Home Health services
--- NOTE | 2024-03-10 14:48 | W.PN.HOSP.TC ---
Today's Communication/Plan
-
dc to home
Assessment / Plan
Assessment / Plan
Assessment:
Unproved VTE
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
- CT: SEVERE ACUTE PULMONARY ARTERIAL EMBOLIC DISEASE in in the lower lobes of both lungs. Moderate pulmonary arterial embolic disease in the right upper and middle lobes. Suggestion of MILD RIGHT HEART STRAIN.
- Dopplers: thromboembolus in the left femoral, popliteal, peroneal, and gastrocnemius veins
- DC on Xarelto - planned for lifelong treatment
- Echo: showed normal LVEF. Dilated RV. Pulmonary hypertension. consistent with acute cor pulmonale
- pulmonary reviewed activity restrictions
Hypothyroidism
- continue levothyroxine
GERD
- continue omeprazole
Polymyalgia rheumatica
- continue prednisone
Hypercholesteremia
- continue statin
Severe obstructive sleep apnea based on home sleep study-currently not on CPAP.
- outpatient follow up
Recent carpal tunnel surgery 01/2024
Code: Full
More than 30 minutes spent in discharge including
Final examination of the patient
Summarizing hospital stay
Instructions for continuing care to all relevant caregivers
Preparation of discharge records, prescriptions, and referral forms
Total time spent (in minutes): 41
Anticipated Discharge: Today
Subjective/Interval History
-
Date of Service: March 10, 2024
no complaints
Objective Data
-
Labs:
Laboratory Results
03/10/24 03/10/24
02:46 08:18
APTT 95.1 H 82.5 H
Vital Signs:
Vital Signs
Temp Pulse Resp BP Pulse Ox
97.8 F 68 17 148/89 96
03/10/24 11:07 03/10/24 11:07 03/10/24 11:07 03/10/24 11:07 03/10/24 11:07
I&O
03/09/24 03/10/24 03/11/24
06:59 06:59 06:59
Intake Total 1140 / 1140 1193 / 1193
Balance 1140 / 1140 1193 / 1193
Physical Exam
-
General: No Apparent Distress
HEENT: Normocephalic and Atraumatic
Respiratory: Negative Wheezes
Cardiac: Regular Rhythm and S1/S2
GI: Soft
Musculoskeletal: No Edema
Neuro: AO x 3
Psych: Calm
Data Reviewed
-
Total Time Spent with Patient (in minutes): 41
Labs: Labs Reviewed by me
--- NOTE | 2024-03-10 14:54 | W.DS.TRANS ---
DC Summary - General Repair Mechanic
-
Discharge Instructions:
Discharge Diagnosis/Procedures acute PE and DVT
Diet Regular
Activity As tolerated
Additional Activity no heavy lifting or strenuous exercise
Bathing Restrictions None
Instructions:
Stand-Alone Forms:
Changes to Home Medications: No
Discharge Medications:
DC Medications w/original date entered in [employer]
calcium citrate 200 mg (950 mg) tablet 400 mg PO DAILY Supplement 03/07/24
cholecalciferol (vitamin D3) 50 mcg (2,000 unit) tablet (Vitamin D3) 50 mcg PO DAILY Supplement 03/07/24
glucosam 750 mg-chondroi 100 mg-hyalur 1.65 mg-CF borate 108 mg tablet (Move Free [employer]) 2 tab PO DAILY Supplement 03/07/24
levothyroxine 125 mcg tablet (Synthroid) 125 mcg PO DAILY Thyroid 03/07/24
omeprazole 40 mg capsule,delayed release 40 mg PO DAILY Gastrointestinal Issue 03/07/24
prednisone 1 mg tablet 3 mg PO DAILY Anti-Inflammatory 03/07/24
prednisone 5 mg tablet 5 mg PO DAILY Anti-Inflammatory 03/07/24
rosuvastatin 40 mg tablet 40 mg PO DAILY High Cholesterol 03/07/24
rivaroxaban 15 mg (42)-20 mg (9) tablets in a starter pack (Xarelto DVT-PE Treatment 30-Day Starter) See Rx Instructions PO .COMPLEX #51 ea 03/09/24
Home Medication Changes
Pending Results: No
Total time spent discharging patient (in min): 41
--- NOTE | 2024-03-10 14:59 | VNURNOTE ---
Home Health Liaison called patient for follow up and left message to again discuss services.
Call to patient's Yasmin at 1500 to discuss [facility] nurse/therapy, visits, schedule and homebound status.
Yasmin is agreeable and understands that visits at home will be 2-3 x per week to assess and teach medical management.
Patient returned call and initially declined [facility] again but eventually agreed after understanding the importance of follow up and monitoring.
Patient is aware that [facility] will contact him for start of care in 1-2 days after discharge from .
[facility] referral completed in Care Port.
[2024-03-10 15:10] VITALS: BP 125/74
== END 2024-03-10 16:28 | disposition home health service (06) | DRG 175 ==
LOC: 4 EAST ACU 13:32
PROVIDERS: Nurse Practitioner; Student in an Organized Health Care Education/Training Program; ADMITTING PHYSICIAN Hospitalist; ATTENDING PHYSICIAN Internal Medicine; CONSULT PHYSICIAN Internal Medicine Critical Care Medicine; EMERGENCY PHYSICIAN Emergency Medicine; FAMILY PHYSICIAN Family Medicine
DX: I26.09 Other pulmonary embolism with acute cor pulmonale (principal); J98.11 Atelectasis; I82.412 Acute embolism and thrombosis of left femoral vein; M35.3 Polymyalgia rheumatica; E03.9 Hypothyroidism, unspecified; E78.5 Hyperlipidemia, unspecified; K21.9 Gastro-esophageal reflux disease without esophagitis; G47.33 Obstructive sleep apnea (adult) (pediatric); E78.00 Pure hypercholesterolemia, unspecified; Z86.711 Personal history of pulmonary embolism
CPT/HCPCS: 71046; 71275; 80048; 80053; 83880; 84484; 85025; 85027; 85730; 86803; 93005; 93306; 93970; 94761; 96374; 99285; Q9967

== ENCOUNTER 2024-06-18 09:54 | Emergency (ER) | payer MEDICARE, OTHER, SELFPAY ==
[2024-06-18 09:58] VITALS: BP 159/88
[2024-06-18 10:26] VITALS: BMI 37.6
[2024-06-18 10:31] VITALS: BP 156/95
--- NOTE | 2024-06-18 10:31 | ED.GENMED ---
History of Present Illness
General
Chief Complaint: Dizziness
Source: patient
Time Seen by Provider: 06/18/24 10:14
History of Present Illness
History of Present Illness:
Patient is a 74-year-old male with history of vertigo, hyperlipidemia presenting to the emergency department with dizziness. Patient states that 2 days ago he got up out of bed in the middle of the night and noticed that the room was spinning.
Since then it has been episodic. It only occurs when he looks to the right. He describes as a room spinning sensation. He does become nauseous with that. It subsides on its own. He denies any syncopal events. No dizziness when he goes from
sitting to standing. No numbness tingling or weakness. No headache. No vision changes. No hearing changes. No nausea no vomiting. No diarrhea. He does have meclizine however did not trial it at home. This does seem similar to his prior
episodes of vertigo. He is currently asymptomatic though when he looks to the right he is able to trigger it.
Past History
Past History
ED Past Medical History: GERD, Hypercholesterolemia, Hypothyroidism and Other (polymyalgia rheumatica)
Phy Exam
Physical Exam
Physical Exam:
GENERAL: in no acute distress
HEENT: normocephalic, extraocular movements intact, moist oral mucosa
NECK: normal inspection
RESPIRATORY: no respiratory distress, clear to auscultation bilaterally
CARDIOVASCULAR: regular rate and rhythm
ABDOMEN/: soft, non-distended, non-tender to palpation, no rebound or guarding
EXTREMITIES: non-tender, no edema/swelling
NEUROLOGIC: alert and oriented x 3, cranial nerves II-XII intact, right upper extremity strength 5/5, left upper extremity strength 5/5, right lower extremity strength 5/5, left lower extremity strength 5/5, normal sensation to light touch, normal
fispje-[id number] and xaql-ri-left, gait not tested formally
SKIN: warm
Course
Orders/Labs/Results
Orders:
Orders
06/18/24 10:25
EKG [Electrocardiogram (*1)] Urgent
Reason for Study: Vertigo / Dizzy
EKG- Treatment ONCE
Vital Signs
Initial and Last Documented VS:
Initial Vital Signs
Temp Pulse Resp BP Pulse Ox
98.3 F 70 18 159/88 95
06/18/24 09:58 06/18/24 09:58 06/18/24 09:58 06/18/24 09:58 06/18/24 09:58
Last Documented Vital Signs
Temp Pulse Resp BP Pulse Ox
98.3 F 70 18 156/95 97
06/18/24 09:58 06/18/24 10:31 06/18/24 10:31 06/18/24 10:31 06/18/24 10:31
MDM/Problems Addressed
Differential Diagnosis Includes:
Patient is a 74-year-old man with history of vertigo, hyperlipidemia presenting to the emergency department with dizziness. Vitals are unremarkable and exam does not show any neurodeficits. Likely peripheral vertigo given that he does have clear
onset and is able to reproduce his symptoms. Less likely to be central cause of his he does not have any neurodeficits, the dizziness is not persistent, he does not have any headache neck pain or gait abnormalities. Will obtain EKG. Will trial
Jeannie maneuver as well as meclizine. If unsuccessful will consider obtaining blood work and possible imaging
*Critical Care Note
Total Time (30-74mins, 75-104mins- exclusive of procedures): Not Applicable
Update Note
Update Note:
EKG per my interpretation normal sinus rhythm. No signs of arrhythmia QTc prolongation or premature complexes. Attempted Jeannie maneuver with 90% success. After 10 minutes patient did request to have the Jeannie maneuver completed again. After
second attempt vertigo is completely gone. After decision-making we will discharge with prescription for meclizine as needed. Exercise instructions given for the Jeannie maneuver to complete at home. All questions answered. Patient ambulatory and
stable on his feet. Will discharge at this time
ED Attending Note
-
Portions of this chart may have been created with voice recognition software.� Occasional wrong word or��sound alike� substitutions may have occurred due to the inherent limitations of voice recognition software.
Discharge Plan
Departure
Patient Disposition: Home (Routine Discharge)
Date of Disposition: 06/18/24
Time of Disposition: 11:08
Patient with high blood pressure during this ER visit?: Yes
Discharge Problem:
Dizziness
Instructions: Vertigo (a Type of Dizziness) (DC), Vestibular Exercises
Prescriptions:
New
meclizine 12.5 mg tablet
12.5 mg PO TID PRN (Reason: dizziness) Qty: 14 0RF
No Action
prednisone 5 mg Tablet
5 mg PO DAILY
Patient Comments:
03/07/2024: taken w/ 3mg = 8mg
omeprazole 40 mg Capsule,Delayed Release(Dr/Ec)
40 mg PO DAILY
prednisone 1 mg Tablet
3 mg PO DAILY
Patient Comments:
03/07/2024: taken w/ 5mg = 8mg
levothyroxine [Synthroid] 125 mcg Tablet
125 mcg PO DAILY
calcium citrate 200 mg (950 mg) Tablet
400 mg PO DAILY
rosuvastatin 40 mg Tablet
40 mg PO DAILY
cholecalciferol (vitamin D3) [Vitamin D3] 50 mcg (2,000 unit) Tablet
50 mcg PO DAILY
[employer] 750 mg-100 mg- 1.65 mg-108 mg Tablet
2 tab PO DAILY
Xarelto DVT-PE Treat 30d Start 15 mg (42)- 20 mg (9) tablets,dose pack
See Rx Instructions .ROUTE .COMPLEX Qty: 51 0RF
Rx Instructions:
follow starter pack instructions
Referrals:
Butch Urena DO [Family Provider] -
Interventions
Interventions:
*Risk Screen - Suicide Last Done: 06/18/24 09:58
*General Assessment Last Done: 06/18/24 09:58
*Neglect/Abuse Screening Last Done: 06/18/24 09:58
*ED COVID-19 Vaccine History Last Done: 06/18/24 09:58
ED- Neurological Assessment Last Done: 06/18/24 10:34
ED- Cardiac Assessment Last Done: 06/18/24 10:34
Discharge Date and Time
Print Language: CENTRAL AFRICAN
[2024-06-18 11:16] VITALS: BP 145/98
== END 2024-06-18 11:22 | disposition home or self-care (01) ==
LOC: EMR 09:54
PROVIDERS: EMERGENCY PHYSICIAN Student in an Organized Health Care Education/Training Program; FAMILY PHYSICIAN Family Medicine
DX: R42 Dizziness and giddiness (principal); E78.00 Pure hypercholesterolemia, unspecified
CPT/HCPCS: 99283; 93005

== ENCOUNTER → 2024-07-08 14:41 | Outpatient (REF) | payer MEDICARE, OTHER, SELFPAY | LOC: HWRCS 14:41 | PROVIDERS: ATTENDING PHYSICIAN Internal Medicine Cardiovascular Disease; FAMILY PHYSICIAN Family Medicine | DX: I26.99 Other pulmonary embolism without acute cor pulmonale (principal) | CPT/HCPCS: 93308 ==

== ENCOUNTER 2024-12-20 13:06 | Emergency (ER) | payer MEDICARE, OTHER, SELFPAY ==
[2024-12-20 13:08] VITALS: BP 170/100
--- NOTE | 2024-12-20 13:18 | ED.GENMED ---
ED Provider Triage
<Fabiano Lopez PA-C - Last Filed: 12/20/24 13:18>
-
Patient seen by provider in Triage?: Seen in Triage
Attestation: A medical screening examination has been initiated by a qualified medical provider. Based on the assessment performed at this time, it has been determined that an emergent medical condition may exist and the patient has been informed
that further medical evaluation and possible additional diagnostic testing may be needed.
HPI: 74-year-old male presents to the emergency department due to leg redness surrounding a laceration that he sustained last week. Suture closure of a skin tear to the left lower extremity last at urgent care, was placed on cephalexin
prophylactically. Over the past 2 days has had increased redness swelling and pain to the area. No fevers or chills
GENERAL: Alert , in no apparent distress
EYE: No visual abnormalities.
NECK: Trachea midline
ENT: No visible abnormalities.
LUNGS: No acute respiratory distress
NEUROLOGICAL: Alert and oriented
SKIN: Large laceration with intact external sutures to the left lateral lower leg, severe erythema and edema, no purulent discharge
MUSCULOSKELETAL: Moving extremities normally
PSYCH: Normal and appropriate interaction.
This is a medical evaluation conducted in person to initiate diagnostic evaluation and provide initial therapeutics. Please see further documentation by the treating clinician.
History of Present Illness
<Fabiano Lopez PA-C - Last Filed: 12/20/24 13:18>
General
Chief Complaint: Skin Problem
Time Seen by Provider: 12/20/24 14:42
<Rambo Burrows DO - Last Filed: 12/20/24 15:34>
General
Source: patient
Exam Limitations: none
History of Present Illness
History of Present Illness:
See MDM
Past History
<Fabiano Lopez PA-C - Last Filed: 12/20/24 13:18>
Past History
ED Past Medical History: GERD, Hypercholesterolemia, Hypothyroidism and Other (polymyalgia rheumatica)
Phy Exam
<Rambo Burrows DO - Last Filed: 12/20/24 15:34>
Physical Exam
Physical Exam:
See MDM
Course
<Fabiano Lopez PA-C - Last Filed: 12/20/24 13:18>
Orders/Labs/Results
Orders:
Orders
12/20/24 13:22
Complete Blood Count/With Diff Urgent
Comprehensive Metabolic Panel Urgent
12/20/24 15:05
Vancomycin [Vancocin] 2,000 mg 0.9% Sodium Chloride 500 ml [Nss] 500 ml IV NOW
Abnormal Lab Results
12/20/24
13:22
RBC 4.15 L 10^6/uL
(4.70-6.10)
MCV 95.2 H fL
(80.0-94.0)
MCH 32.3 H pg
(27.0-31.0)
Absolute Lymphs (auto) 1.0 L 10^3/uL
(1.2-3.4)
Lymphocytes % 17.9 L %
(20.5-51.1)
Glucose 101 H mg/dl
(70-99)
12/20/24 13:22
12/20/24 13:22
Vital Signs
Initial and Last Documented VS:
Initial Vital Signs
Temp Pulse Resp BP Pulse Ox
97.8 F 75 17 170/100 100
12/20/24 13:08 12/20/24 13:08 12/20/24 13:08 12/20/24 13:08 12/20/24 13:08
Last Documented Vital Signs
Temp Pulse Resp BP Pulse Ox
98.0 F 68 18 145/74 98
12/20/24 14:58 12/20/24 14:58 12/20/24 14:58 12/20/24 14:58 12/20/24 14:58
<Rambo Burrows, DO - Last Filed: 12/20/24 15:34>
Orders/Labs/Results
Orders:
Orders
12/20/24 13:22
Complete Blood Count/With Diff Urgent
Comprehensive Metabolic Panel Urgent
12/20/24 15:05
Vancomycin [Vancocin] 2,000 mg 0.9% Sodium Chloride 500 ml [Nss] 500 ml IV NOW
Abnormal Lab Results
12/20/24
13:22
RBC 4.15 L 10^6/uL
(4.70-6.10)
MCV 95.2 H fL
(80.0-94.0)
MCH 32.3 H pg
(27.0-31.0)
Absolute Lymphs (auto) 1.0 L 10^3/uL
(1.2-3.4)
Lymphocytes % 17.9 L %
(20.5-51.1)
Glucose 101 H mg/dl
(70-99)
12/20/24 13:22
12/20/24 13:22
Vital Signs
Initial and Last Documented VS:
Initial Vital Signs
Temp Pulse Resp BP Pulse Ox
97.8 F 75 17 170/100 100
12/20/24 13:08 12/20/24 13:08 12/20/24 13:08 12/20/24 13:08 12/20/24 13:08
Last Documented Vital Signs
Temp Pulse Resp BP Pulse Ox
98.0 F 68 18 145/74 98
12/20/24 14:58 12/20/24 14:58 12/20/24 14:58 12/20/24 14:58 12/20/24 14:58
<Rambo Burrows, DO - Last Filed: 02/04/25 15:34>
MDM/Problems Addressed
Differential Diagnosis Includes:
HPI and MDM Narrative:
74-year-old male presenting from urgent care for evaluation of cellulitis to his left leg. Patient had a large laceration repair about 5 days ago. Patient has been on Keflex for the past few days. For the past 2 days, he has noted worsening
redness and pain. He denies drainage or fevers. He went to urgent care and he was sent to the emergency department for IV antibiotics.
On exam, patient does have cellulitis to his left leg. Will give dose of vancomycin his white blood cell count is normal and he is afebrile. He is already on Keflex. Will add Bactrim. Going home and we discussed taking pictures of his leg to
ensure that the erythema is improved
Physical exam
General: Well appearing and non-toxic
HEENT: protecting airway
Neck: appears supple
CV: No evidence of cyanosis
Resp: No accessory muscle use
Abd: Non-distended
Extremities: Laceration repair to left leg with surrounding erythema. No discharge
Neuro: alert
Psych: Normal affect
Skin: Intact
Problems Addressed including Acute and Chronic Conditions affecting care:
1. Left leg cellulitis
Acuity: acute
Prognosis: stable
Details: Give dose of vancomycin. Patient already on Keflex. Will add Bactrim.
Update: [facility] called at 3:30 PM. There is a contraindication with Bactrim and his methotrexate. Will switch clindamycin
Differential Diagnosis (but not limited to): Cellulitis, venous stasis
Testing considered: DVT ultrasound there is no tenderness to deep venous palpation
Drug therapy (if applicable): OTC meds, please see d/c instruction regarding Rx drugs
Amount and/or Complexity of Data Reviewed
Clinical info obtained from: Patient
External data reviewed: N/A
Labs I independently reviewed (but not limited to): White blood cell count
Radiology: N/A
Pulse Ox: not hypoxic
EKG independently reviewed: N/A
Cad Draftsman: N/A
Critical Care: N/A
Risk of Complication:
Social Determinants of health: Good social support
Discussed with other providers: N/A
Escalation of Care includes Admit/Obs: After being observed in the Emergency Department, pt stable for discharge.
Occasional wrong word or 'sound a like' substitutions may have occurred due to the inherent limitations of voice recognition software. Read the chart carefully and recognize, using context, where substitutions have occurred.
<Rambo Burrows DO - Last Filed: 12/20/24 15:34>
*Critical Care Note
Total Time (30-74mins, 75-104mins- exclusive of procedures): Not Applicable
ED Attending Note
<Fabiano Lopez PA-C - Last Filed: 12/20/24 13:18>
-
Portions of this chart may have been created with voice recognition software.� Occasional wrong word or��sound alike� substitutions may have occurred due to the inherent limitations of voice recognition software.
Discharge Plan
Departure
Patient Disposition: Home (Routine Discharge)
Date of Disposition: 12/20/24
Time of Disposition: 14:55
Patient with high blood pressure during this ER visit?: Yes
Discharge Problem:
Cellulitis
Instructions: Cellulitis (Skin Infection), Adult (DC), BLOOD PRESSURE
Prescriptions:
New
clindamycin HCl 300 mg capsule
300 mg PO TID 10 Days Qty: 30 0RF
No Action
prednisone 5 mg Tablet
5 mg PO DAILY
Patient Comments:
03/07/2024: taken w/ 3mg = 8mg
omeprazole 40 mg Capsule,Delayed Release(Dr/Ec)
40 mg PO DAILY
prednisone 1 mg Tablet
3 mg PO DAILY
Patient Comments:
03/07/2024: taken w/ 5mg = 8mg
levothyroxine [Synthroid] 125 mcg Tablet
125 mcg PO DAILY
calcium citrate 200 mg (950 mg) Tablet
400 mg PO DAILY
rosuvastatin 40 mg Tablet
40 mg PO DAILY
cholecalciferol (vitamin D3) [Vitamin D3] 50 mcg (2,000 unit) Tablet
50 mcg PO DAILY
[employer] [facility] [employer] [facility] 750 mg-100 mg- 1.65 mg-108 mg Tablet
2 tab PO DAILY
Xarelto DVT-PE Treat 30d Start 15 mg (42)- 20 mg (9) tablets,dose pack
See Rx Instructions .ROUTE .COMPLEX Qty: 51 0RF
Rx Instructions:
follow starter pack instructions
meclizine 12.5 mg tablet
12.5 mg PO TID PRN (Reason: dizziness) Qty: 14 0RF
Referrals:
Butch Urena DO [Family Provider] -
Activity Restrictions/Additional Instructions:
Watch for worsening signs of infection: fever over 100.5', increasing pain, red streaks around wound, swelling, or increasing drainage of pus. If any of these happen, return to ED promptly. Make sure that you take all your antibiotics as directed
and finish your prescription even if you feel better before the bottle is empty
Interventions
Interventions:
*Risk Screen - Suicide Last Done: 12/20/24 13:37
*General Assessment Last Done: 12/20/24 13:36
*Neglect/Abuse Screening Last Done: 12/20/24 13:37
ED- Fall Risk Assessment Last Done: 12/20/24 13:37
*ED COVID-19 Vaccine History Last Done: 12/20/24 13:36
ED-Skin Assessment Last Done: 12/20/24 13:37
Discharge Date and Time
Print Language: URDU
[2024-12-20 13:31] LABS: % Basophils 0.5 % (0-2); % Eosinophils 3.3 % (0-6); % Immature Granulocytes 0.2 % (0-0.5); % Lymphocytes 17.9 % (20.5-51.1); % Monocytes 7.1 % (1.7-9.3); Absolute Eosinophils 0.2 10^3/uL (0-0.7); Absolute Monocytes 0.4 10^3/uL (0.1-0.6); Absolute Neutrophils 3.9 10^3/uL (1.4-6.5); Hematocrit 39.5 % (39.0-52.0); Hemoglobin 13.4 g/dL (13.0-18.0); Mean Corp Hgb Conc. 33.9 g/dL (33.0-37.0); Mean Corpuscular Hgb 32.3 pg (27.0-31.0); Mean Corpuscular Volume 95.2 fL (80.0-94.0); Mean Platelet Volume 8.9 fL (7.4-10.4); Nucleated Red Blood Cells % 0 % (-); Platelet Count 148 10^3/uL (130-400); Red Blood Cell Count 4.15 10^6/uL (4.70-6.10); Red Cell Dist. Width 13.9 % (11.5-14.5); White Blood Cell Count 5.5 10^3/uL (4.8-10.8)
[2024-12-20 13:36] VITALS: BMI 36.0
[2024-12-20 14:13] LABS: ALT (SGPT) 19 U/L (0-50); AST (SGOT) 26 U/L (17-59); Albumin 4.1 g/dl (3.5-5.0); Alkaline Phosphatase 67 U/L (38-126); Blood Urea Nitrogen 13 mg/dl (9-20); Calcium 8.7 mg/dl (8.4-10.2); Carbon Dioxide 28 mmol/L (22-30); Chloride 103 mmol/L (98-107); Estimated Creatinine Clearance 105 ml/min; Glucose 101 mg/dl (70-99); Potassium 3.8 mmol/L (3.5-5.1); Sodium 138 mmol/L (135-145); Total Bilirubin 1.2 mg/dl (0.2-1.3); Total Protein 6.7 g/dl (6.3-8.2); eGFR > 60.00
[2024-12-20 14:58] VITALS: BP 145/74
[2024-12-20] MEDS: VANCOCIN 540 MG IV (15:20)
== END 2024-12-20 17:51 | disposition home or self-care (01) ==
LOC: EMR 13:06
PROVIDERS: Physician Assistant; EMERGENCY PHYSICIAN Student in an Organized Health Care Education/Training Program; FAMILY PHYSICIAN Family Medicine
DX: L03.116 Cellulitis of left lower limb (principal); R03.0 Elevated blood-pressure reading, without diagnosis of hypertension
CPT/HCPCS: 99284; 96365; 96366; 80053; 85025

== ENCOUNTER → 2025-05-01 09:37 | Outpatient (REF) | payer MEDICARE, OTHER, SELFPAY | LOC: RCS 09:37 | PROVIDERS: ATTENDING PHYSICIAN Student in an Organized Health Care Education/Training Program; FAMILY PHYSICIAN Family Medicine | DX: I25.10 Atherosclerotic heart disease of native coronary artery without angina pectoris (principal) | CPT/HCPCS: 93306 ==